=== PATIENT | female | born 1955 | race Caucasian/White ===

== ENCOUNTER 2016-08-25 16:39 | Emergency (ER) | payer OTHER ==
[~2016-08-25] VITALS: Ht 152.4 cm; Wt 58.8 kg
[~2016-08-25 16:39] MED LIST: 24HOUR ALLERGY10 MG PO; ADVAIR 250/501 DISK IH; ALBUTEROL17 GM IH; ALLERGY RELIE15.8 ML BOTH NARES; BENTYL20 MG PO; BIOTIN2500 MCG PO; CALCIUM + D SO1 EACH PO; CALCIUM 500 MG1 EACH PO; CALCIUM600 M1 PO; CLONAZEPAM0.5 MG PO; COLACE100 MG PO; DULERA 100 MCG/13 GM IH; ESOMEPRAZOLE MA40 MG PO; FOLBIC RF TABL1 EACH PO; HYDROCHLOROTHIA25 MG PO; KEFLEX500 MG PO; LISINOPRIL10 MG PO; LO-DOSE ASPIRIN81 M1 PO; MECLIZINE HCL25 MG PO; MYLICON,MYLANTA80 MG PO; NEXIUM40 MG PO; PREDNISONE20 MG PO; PROAIR HFA8.5 GM IH; SYMBICORT60 INHALAT IH; TESSALON200 MG PO; TRAZODONE HCL50 MG PO; ULTRAM50 MG PO; UNISOM SLEEP AI25 MG PO; VALIUM5 MG PO; VITAMIN B122500 MCG PO; VITAMIN D2000 UNIT PO; XANAX1 MG PO; ZADITOR 0.100 DROP/5 BOTH EYES; ZESTRIL,PRINIVI10 MG PO; ZOFRAN ODT4 MG PO; ZYRTEC10 M2 PO
[2016-08-25] MEDS ORDERED: MOTRIN800 MG PO (18:16)
[2016-08-25 19:03] VITALS: BP 165/82
== END 2016-08-25 19:03 | disposition home or self-care (01) ==
LOC: EME 16:39
DX: S69.91XA Unspecified injury of right wrist, hand and finger(s), initial encounter (principal); V18.0XXA Pedal cycle driver injured in noncollision transport accident in nontraffic accident, initial encounter; Y93.55 Activity, bike riding; Y92.007 Garden or yard of unspecified non-institutional (private) residence as the place of occurrence of the external cause; I10 Essential (primary) hypertension; J45.909 Unspecified asthma, uncomplicated; Z79.82 Long term (current) use of aspirin; Z87.891 Personal history of nicotine dependence
CPT/HCPCS: 73130; 99281; 99284

== ENCOUNTER 2016-09-13 20:22 | Emergency (ER) | payer OTHER ==
[~2016-09-13] VITALS: Ht 152.4 cm; Wt 57.7 kg
[~2016-09-13 20:22] MED LIST changes: +MOTRIN800 MG PO
[2016-09-13 21:31] LABS: ADD MIUA? YES; BILIRUBIN NEGATIVE; BLOOD LARGE; COLOR YELLOW ((YELLOW)); GLUCOSE (STRIP) NEGATIVE; KETONES NEGATIVE; LEUKOCYTES LARGE; NITRITE NEGATIVE; PROTEIN (STRIP) 100; SPECIFIC GRAVITY 1.005 (1.000-1.030); UROBILINOGEN 0.2 MG/DL (0.2-1.0)
[2016-09-13 21:40] LABS: BACTERIA RARE /HPF; EPITHELIAL CELLS NONE SEEN /HPF; MUCUS NONE SEEN /LPF; RED BLOOD CELLS 40-50 /HPF (0-5); UCUL ADDED? YES; WHITE BLOOD CELLS TNTC /HPF (0-5); WHITE BLOOD CELLS CLUMP FEW /HPF (0-5)
[2016-09-13] MEDS ORDERED: BACTRIM,SEPT1 TABLET PO (23:35)
[2016-09-13] MEDS ORDERED: PYRIDIUM200 MG PO (23:54)
[2016-09-13 23:55] VITALS: BP 150/84
[2016-09-14] MEDS ORDERED: LISINOPRIL20 MG PO (15:46)
[2016-09-14] MEDS ORDERED: FLONASE16 G1 BOTH NARES (15:50)
[2016-09-14] MEDS ORDERED: PATADAY2.5 ML BOTH EYES (15:51)
[2016-09-14] MEDS ORDERED: PHAZYME250 MG PO (15:52)
[2016-09-14] MEDS ORDERED: BIOTIN1000 MICRO PO (15:56)
[2016-09-14] MEDS ORDERED: TRAMADOL HCL50 MG PO (19:13)
[2016-09-14] MEDS ORDERED: ESCITALOPRAM OX10 MG PO (19:14)
[2016-09-14] MEDS ORDERED: QVAR 80 MCG IN7.3 GM IH (19:16)
[2016-09-14] MEDS ORDERED: IPRATROPIUM BRO30 ML BOTH NARES (19:16)
[2016-09-14] MEDS ORDERED: FLOVENT DISKUS1 DIS1 IH (19:17)
[2016-09-14] MEDS ORDERED: ANTIVERT25 MG PO (19:17)
== END 2016-09-13 23:58 | disposition home or self-care (01) ==
LOC: EME 20:22
DX: N39.0 Urinary tract infection, site not specified (principal); I10 Essential (primary) hypertension; J45.909 Unspecified asthma, uncomplicated; K21.9 Gastro-esophageal reflux disease without esophagitis; K44.9 Diaphragmatic hernia without obstruction or gangrene; F41.9 Anxiety disorder, unspecified; Z87.891 Personal history of nicotine dependence
CPT/HCPCS: 81003; 87077; 87086; 87186; 99281; 99284

== ENCOUNTER 2016-09-14 15:28 | Observation (INO) | payer OTHER ==
[~2016-09-14] VITALS: Ht 152.4 cm; Wt 56.7 kg
[~2016-09-14 15:28] MED LIST changes: +BACTRIM,SEPT1 TABLET PO; +PYRIDIUM200 MG PO
[2016-09-14] MEDS ORDERED: LISINOPRIL20 MG PO (15:46)
[2016-09-14] MEDS ORDERED: FLONASE16 G1 BOTH NARES (15:50)
[2016-09-14] MEDS ORDERED: PATADAY2.5 ML BOTH EYES (15:51)
[2016-09-14] MEDS ORDERED: PHAZYME250 MG PO (15:52)
[2016-09-14] MEDS ORDERED: BIOTIN1000 MICRO PO (15:56)
[2016-09-14 17:11] LABS: HEMATOCRIT 37.4 % (36.0-46.0); MCH 30.2 PG (29.0-34.0); MCHC 34.5 G/DL (30.0-36.0); MCV 87.6 FL (83-99); PLATELET COUNT 274 K/uL (156-360); RBC DIS.WIDTH-CV 11.9 % (11.8-14.6); RBC DIS.WIDTH-SD 38.2 % (39-53); RED BLOOD COUNT 4.27 M/uL (3.80-5.20)
[2016-09-14 17:22] LABS: CHLORIDE 84 mEq/L (99-109); POTASSIUM 4.1 mEq/L (3.7-5.4); SODIUM 121 mEq/L (136-147)
[2016-09-14 17:24] LABS: GLUCOSE 121 mg/dL (70-99)
[2016-09-14 17:25] LABS: ANION GAP 10 MEQ/L (2-14)
[2016-09-14 17:26] LABS: TOTAL BILIRUBIN 0.5 mg/dL (0.0-1.0)
[2016-09-14 17:27] LABS: ALKALINE PHOSPHATASE 49 IU/L (3-129)
[2016-09-14 17:28] LABS: GFR ESTIMATE (CALCULATED) > 59 mL/min/
[2016-09-14 17:29] LABS: UREA NITROGEN (BUN) 7 mg/dL (9-23)
[2016-09-14 17:30] LABS: ADD MIUA? YES; BILIRUBIN NEGATIVE; BLOOD NEGATIVE; COLOR YELLOW ((YELLOW)); GLUCOSE (STRIP) NEGATIVE; KETONES 20; LEUKOCYTES TRACE; NITRITE NEGATIVE; PROTEIN (STRIP) NEGATIVE; UROBILINOGEN 0.2 MG/DL (0.2-1.0)
[2016-09-14 17:31] LABS: LIPASE 11 U/L (1.0-51.0)
[2016-09-14 17:51] LABS: RED BLOOD CELLS RARE /HPF (0-5)
[2016-09-14 17:52] LABS: BACTERIA 1+ /HPF; EPITHELIAL CELLS RARE /HPF; MUCUS NONE SEEN /LPF
[2016-09-14 17:53] LABS: AMORPHOUS URATES CRYSTALS 2+; CASTS NONE SEEN /LPF; CRYSTALS PRESENT
[2016-09-14] MEDS ORDERED: TRAMADOL HCL50 MG PO (19:13)
[2016-09-14] MEDS ORDERED: ESCITALOPRAM OX10 MG PO (19:14)
[2016-09-14] MEDS ORDERED: IPRATROPIUM BRO30 ML BOTH NARES (19:16)
[2016-09-14] MEDS ORDERED: QVAR 80 MCG IN7.3 GM IH (19:16)
[2016-09-14] MEDS ORDERED: FLOVENT DISKUS1 DIS1 IH (19:17)
[2016-09-14] MEDS ORDERED: ANTIVERT25 MG PO (19:17)
[2016-09-14 21:34] LABS: URIC ACID 2.8 mg/dL (3.1-9.2)
[2016-09-14 21:57] VITALS: BP 140/69
[2016-09-14 22:55] LABS: POTASSIUM 3.8 mEq/L (3.7-5.4)
[2016-09-14 22:56] LABS: GLUCOSE 100 mg/dL (70-99)
[2016-09-14 22:58] LABS: ANION GAP 8 MEQ/L (2-14)
[2016-09-14 23:00] LABS: GFR ESTIMATE (CALCULATED) > 59 mL/min/
[2016-09-14 23:01] LABS: UREA NITROGEN (BUN) 6 mg/dL (9-23)
[2016-09-14 23:04] LABS: CHLORIDE 98 mEq/L (99-109); SODIUM 128 mEq/L (136-147)
[2016-09-14 23:54] LABS: METH RESISTANT S AUREUS PCR NEGATIVE (NEGATIVE)
[2016-09-15 00:19] LABS: PROBE CHECK PASS; SPECIMEN PROCESSING CONTROL PASS
[2016-09-15 00:50] VITALS: BP 127/59
[2016-09-15 03:29] VITALS: BP 141/64
[2016-09-15 06:20] LABS: HEMATOCRIT 34.9 % (36.0-46.0); MCH 31.5 PG (29.0-34.0); MCHC 34.4 G/DL (30.0-36.0); MCV 91.6 FL (83-99); MEAN PLAT.VOLUME 10.2 uM^3 (9.5-12.4); PLATELET COUNT 227 K/uL (156-360); RBC DIS.WIDTH-CV 12.2 % (11.8-14.6); RBC DIS.WIDTH-SD 40.9 % (39-53); RED BLOOD COUNT 3.81 M/uL (3.80-5.20); WHITE BLOOD COUNT 4.9 K/uL (4.1-10.2)
[2016-09-15 06:46] LABS: ANION GAP 6 MEQ/L (2-14); CHLORIDE 102 MEQ/L (99-109); GFR ESTIMATE (CALCULATED) > 59 mL/min/; GLUCOSE 94 mg/dL (70-99); POTASSIUM 4.3 MEQ/L (3.7-5.4); SAMPLE HEMOLYSIS CHECK 1; SAMPLE ICTERIC CHECK 0; SAMPLE LIPEMIA CHECK 0; SODIUM 133 MEQ/L (136-147); UREA NITROGEN (BUN) 5 mg/dL (9-23)
[2016-09-15 09:55] VITALS: BP 141/62
[2016-09-15] MEDS ORDERED: VANTIN200 MG PO (10:53)
== END 2016-09-15 12:27 | disposition home or self-care (01) ==
LOC: EME 15:28 → EDOF 20:34 → 5WEST 20:34 → EDOF 20:34 → 5WEST 21:35
PROVIDERS: Hospitalist; Nurse Practitioner Family
DX: N39.0 Urinary tract infection, site not specified (principal); R31.0 Gross hematuria; E87.1 Hypo-osmolality and hyponatremia; R11.2 Nausea with vomiting, unspecified; J45.909 Unspecified asthma, uncomplicated; I10 Essential (primary) hypertension; K21.9 Gastro-esophageal reflux disease without esophagitis; Z79.82 Long term (current) use of aspirin; Z87.891 Personal history of nicotine dependence; R73.9 Hyperglycemia, unspecified; E78.5 Hyperlipidemia, unspecified; F41.9 Anxiety disorder, unspecified; G43.909 Migraine, unspecified, not intractable, without status migrainosus; I73.9 Peripheral vascular disease, unspecified; I70.8 Atherosclerosis of other arteries
CPT/HCPCS: 74176; 80048; 80048 91; 80053; 81003; 82436; 83690; 83930; 83935; 84133; 84300; 84443; 84550; 85027; 87641; 93005; 94640; 94640 76; 99202; 99281; 99285; G0378; J0696; J2405; J7030; J7050

== ENCOUNTER → 2017-03-19 | Outpatient (CLI) | payer OTHER ==
[~2017-03-19] MED LIST changes: +ANTIVERT25 MG PO; +BIOTIN1000 MICRO PO; +ESCITALOPRAM OX10 MG PO; +FLONASE16 G1 BOTH NARES; +FLOVENT DISKUS1 DIS1 IH; +IPRATROPIUM BRO30 ML BOTH NARES; +LEXAPRO20 MG PO; +LINZESS290 MCG PO; +LISINOPRIL20 MG PO; +PATADAY2.5 ML BOTH EYES; +PHAZYME250 MG PO; +QVAR 80 MCG IN7.3 GM IH; +TRAMADOL HCL50 MG PO; +VANTIN200 MG PO; +ZYRTEC10 M3 PO
== END | disposition home or self-care (01) ==
LOC: NUC 10:43
DX: R10.13 Epigastric pain (principal)
CPT/HCPCS: 78226; A9537

== ENCOUNTER 2017-06-25 19:02 | Emergency (ER) | payer OTHER ==
[~2017-06-25] VITALS: Ht 152.4 cm; Wt 54.0 kg
[2017-06-25 19:56] LABS: HEMATOCRIT 39.4 % (36.0-46.0); HEMOGLOBIN 13.7 G/DL (11.9-15.5); MCH 31.2 PG (29.0-34.0); MCHC 34.8 G/DL (30.0-36.0); MCV 89.7 FL (83-99); PLATELET COUNT 241 K/uL (156-360); RBC DIS.WIDTH-SD 39.5 % (39-53); RED BLOOD COUNT 4.39 M/uL (3.80-5.20); WHITE BLOOD COUNT 9.2 K/uL (4.1-10.2)
[2017-06-25 20:09] LABS: CHLORIDE 98 mEq/L (99-109); SODIUM 129 mEq/L (136-147)
[2017-06-25 20:10] LABS: GLUCOSE 109 mg/dL (70-99)
[2017-06-25 20:14] LABS: CREATININE 0.7 mg/dL (0.6-1.3); GFR ESTIMATE (CALCULATED) > 59 mL/min/
[2017-06-25 20:15] LABS: UREA NITROGEN (BUN) 11 mg/dL (9-23)
[2017-06-25 20:21] LABS: TROP-I INTERPRETATION NEGATIVE; TROPONIN-I < 0.01 ng/mL (0.0-0.30)
[2017-06-25 23:08] LABS: ALBUMIN 4.4 g/dL (3.2-4.8)
[2017-06-25 23:11] LABS: TOTAL PROTEIN 7.7 g/dL (6.4-8.3)
[2017-06-25 23:12] LABS: TOTAL BILIRUBIN 0.5 mg/dL (0.0-1.0)
[2017-06-25 23:13] LABS: ALKALINE PHOSPHATASE 54 IU/L (3-129)
[2017-06-25 23:16] LABS: AST (GOT) 23 IU/L (2-34); DIRECT BILIRUBIN 0.2 mg/dL (0.0-0.3)
[2017-06-25 23:17] LABS: ALT (GPT) 19 IU/L (3-49); LIPASE 21 U/L (1.0-51.0)
[2017-06-26 01:52] LABS: SODIUM 133 mEq/L (136-147)
[2017-06-26 01:56] LABS: CHLORIDE 110 mEq/L (99-109); GLUCOSE 80 mg/dL (70-99); POTASSIUM 3.1 mEq/L (3.7-5.4)
[2017-06-26 01:58] LABS: CREATININE 0.5 mg/dL (0.6-1.3); GFR ESTIMATE (CALCULATED) > 59 mL/min/; UREA NITROGEN (BUN) 7 mg/dL (9-23)
[2017-06-26] MEDS ORDERED: ZOFRAN ODT4 MG PO (02:04)
[2017-06-26 02:18] VITALS: BP 146/68
== END 2017-06-26 02:19 | disposition home or self-care (01) ==
LOC: EME 19:02
PROVIDERS: Physician Assistant
DX: R19.7 Diarrhea, unspecified (principal); R10.10 Upper abdominal pain, unspecified; R11.0 Nausea; R51 Headache; E87.1 Hypo-osmolality and hyponatremia; I10 Essential (primary) hypertension; J45.909 Unspecified asthma, uncomplicated; Z79.82 Long term (current) use of aspirin; Z87.891 Personal history of nicotine dependence
CPT/HCPCS: 71046; 80048; 80076; 83690; 84484; 85027; 93005; 99281; 99284; J2270; J2405; J7030; S0028

== ENCOUNTER 2017-11-04 13:06 | Emergency (ER) | payer OTHER ==
[~2017-11-04] VITALS: Ht 152.4 cm; Wt 60.5 kg
[2017-11-04 13:53] LABS: HEMATOCRIT 34.2 % (36.0-46.0); HEMOGLOBIN 12.1 G/DL (11.9-15.5); MCHC 35.4 G/DL (30.0-36.0); MCV 87.7 FL (83-99); PLATELET COUNT 238 K/uL (156-360); RBC DIS.WIDTH-CV 12.1 % (11.8-14.6); RBC DIS.WIDTH-SD 38.8 % (39-53); WHITE BLOOD COUNT 5.7 K/uL (4.1-10.2)
[2017-11-04 14:03] LABS: CHLORIDE 97 mEq/L (99-109); POTASSIUM 3.9 mEq/L (3.7-5.4); SODIUM 134 mEq/L (136-147)
[2017-11-04 14:05] LABS: GLUCOSE 97 mg/dL (70-99)
[2017-11-04 14:09] LABS: CREATININE 0.7 mg/dL (0.6-1.3); GFR ESTIMATE (CALCULATED) > 59 mL/min/; UREA NITROGEN (BUN) 11 mg/dL (9-23)
[2017-11-04 14:59] LABS: APPEARANCE CLEAR ((CLEAR)); BILIRUBIN NEGATIVE; BLOOD NEGATIVE; COLOR STRAW ((YELLOW)); GLUCOSE (STRIP) NEGATIVE; KETONES NEGATIVE; LEUKOCYTES NEGATIVE; NITRITE NEGATIVE; PROTEIN (STRIP) NEGATIVE; SPECIFIC GRAVITY 1.005 (1.000-1.030); UCUL ADDED? NO; UROBILINOGEN 0.2 MG/DL (0.2-1.0)
[2017-11-04 15:45] VITALS: BP 145/74
== END 2017-11-04 15:45 | disposition home or self-care (01) ==
LOC: EME 13:06
PROVIDERS: Nurse Practitioner Family
DX: N95.0 Postmenopausal bleeding (principal); R10.30 Lower abdominal pain, unspecified; N88.8 Other specified noninflammatory disorders of cervix uteri; I10 Essential (primary) hypertension; J45.909 Unspecified asthma, uncomplicated; Z79.82 Long term (current) use of aspirin; Z87.891 Personal history of nicotine dependence
CPT/HCPCS: 76856; 80048; 81003; 85027; 99281; 99284